=== PATIENT | male | born 1985 | race African-American/Black ===

== ENCOUNTER 2016-09-27 17:06 | Emergency (ER) | payer SELFPAY ==
[~2016-09-27] VITALS: Ht 177.8 cm; Wt 85.0 kg
[2016-09-27] MEDS ORDERED: KETOROLAC 60MG/2ML VIAL IM ONE (21:15)
[2016-09-27 23:00] VITALS: BP 133/81
== END 2016-09-27 23:22 | disposition home or self-care (01) ==
LOC: ER 17:07
DX: S46.912A Strain of unspecified muscle, fascia and tendon at shoulder and upper arm level, left arm, initial encounter (principal); S60.222A Contusion of left hand, initial encounter; V43.52XA Car driver injured in collision with other type car in traffic accident, initial encounter; Y92.488 Other paved roadways as the place of occurrence of the external cause
CPT/HCPCS: 72125; 73030; 73130; 96372; 99284; J1885; Z7610